=== PATIENT | female | born 2000 | race Caucasian/White ===

== ENCOUNTER 2021-03-17 16:57 | Emergency (ER) | payer OTHER, BC ==
[~2021-03-17] VITALS: Ht 157.5 cm; Wt 102.0 kg
[2021-03-17] MEDS ORDERED: IV NORMAL SALINE 1,000ML 1,000 ML IV ONE (17:15)
[2021-03-17 17:23] VITALS: BP 164/104
[2021-03-17] MEDS ORDERED: CONTRAST GIVEN. MC PRN (17:30)
[2021-03-17] MEDS ORDERED: IOHEXOL 300 MG/ML 75 ML VIAL. IV ONE (17:30)
--- NOTE | 2021-03-17 17:41 | PHYS DOC ---
Past History Past Surgical History: No Surgical History (SHILPA ARMSTRONG DO) General Adult EDM: Chief Complaint: SORE THROAT HPI: HPI: 21-year-old female presents with left tonsil swelling. The patient has been treated with amoxicillin for positive strep test, then had a negative strep test and was treated with penicillin anyway. Both of these were 10-day treatment plans. The pain and soreness in her neck improved but did not ever go away. She had another rapid strep at the doctor's office today and it was negative. They are concerned about peritonsillar abscess so they sent the patient to the emergency room. The patient is not sure if she ever had mononucleosis. She denies fever or chills. (SHILPA ARMSTRONG DO) Review of Systems: Review of Systems: Constitutional: Denies fever or chills Eyes: Denies change in visual acuity HENT: sore throat Respiratory: Denies cough or shortness of breath Cardiovascular: Denies chest pain or edema GI: Denies abdominal pain, nausea, vomiting, bloody stools or diarrhea : Denies dysuria Musculoskeletal: Denies back pain or joint pain Integument: Denies rash Neurologic: Denies headache, focal weakness or sensory changes Endocrine: Denies polyuria or polydipsia Lymphatic: Denies swollen glands Psychiatric: Denies depression or anxiety (SHILPA ARMSTRONG DO) Current Medications: Current Meds: Current Medications Medications (Trade) Dose Ordered Sig/[place] Start Time Stop Time Status Last Admin Dose Admin Info (Do NOT chart on this entry -- for MONITORING) 1 each PRN DAILY PRN 03/17/21 17:30 03/19/21 17:29 Iohexol (Omnipaque 300 Mg/ml) 75 ml 1X ONCE 03/17/21 17:30 03/17/21 17:31 DC Sodium Chloride 1,000 ml @ 1,000 mls/hr 1X ONCE 03/17/21 17:15 03/17/21 18:14 (SHILPA ARMSTRONG DO) Allergies: Allergies: Allergies Coded Allergies Type Severity Reaction Last Updated Verified No Known Drug Allergies 03/17/21 No (SHILPA ARMSTRONG DO) Physical Exam: PE: Constitutional: Well developed, well nourished, morbidly obese, no acute distress, non-toxic appearance. [] HENT: Normocephalic, atraumatic, bilateral external ears normal, oropharynx moist, enlarged swollen left tonsil, nose normal. [] Eyes: PERRLA, EOMI, conjunctiva normal, no discharge. [] Neck: Significantly enlarged left anterior cervical lymph node [] Cardiovascular:Heart rate regular rhythm, no murmur [] Lungs & Thorax: Bilateral breath sounds clear to auscultation [] Abdomen: Bowel sounds normal, soft, no tenderness, no masses, no pulsatile masses. [] Skin: Warm, dry, no erythema, no rash. [] Back: No tenderness, no CVA tenderness. [] Extremities: No tenderness, no cyanosis, no clubbing, ROM intact, no edema. [] Neurologic: Alert and oriented X 3, normal motor function, normal sensory function, no focal deficits noted. [] Psychologic: Affect normal, judgement normal, mood normal. [] (SHILPA ARMSTRONG DO) Current Patient Data: Vital Signs: Vital Signs Date Time Temp Pulse Resp B/P (MAP) Pulse Ox O2 Delivery O2 Flow Rate FiO2 03/17/21 17:23 98.1 128 20 164/104 98 Room Air (SHILPA ARMSTRONG DO) EKG: EKG: [] (SHILPA ARMSTRONG DO) Radiology/Procedures: Radiology/Procedures: [] (SHILPA ARMSTRONG DO) Radiology/Procedures: [address] [id number] IMAGING REPORT Signed PATIENT: YAMEL FAGAN ACCOUNT: [id number] : 2000 LOCATION: ER AGE: 21 SEX: F EXAM STATUS: REG ER ORD. PHYSICIAN: SHILPA ARMSTRONG DO REASON: tonsils swollen, rule out abscess PROCEDURE: CT SOFT TISSUE NECK W/CONTRAST PQRS Compliance Statement: One or more of the following individualized dose reduction techniques were utilized for this examination: 1. Automated exposure control 2. Adjustment of the mA and/or kV according to patient size 3. Use of iterative reconstruction technique CT NECK SOFT TISSUE WITH IV CONTRAST 03/17/2021 5:45 PM Indication: Tonsillar swelling COMPARISON: None available. TECHNIQUE: Multiple axial CT images of the neck were obtained after the intravenous administration nonionic contrast. Coronal and sagittal reformats are provided. FINDINGS: The visualized brain parenchyma appears intact. The skull base is normal. The visualized paranasal sinuses and orbital contents are normal. The sella turcica and cavernous sinus regions appear intact. The mastoid air cells are normal. The fossa of Rosenmuller is normal. There is tonsillar edema, left greater than right with moderate narrowing the oropharyngeal airway. Findings suggest tonsi llitis. No peritonsillar abscess or retropharyngeal abscess. The parotid space contents and apparel cutter space contents appear intact. The parapharyngeal spaces are normal. The submandibular and sublingual space contents appear intact. The epiglottis, aryepiglottic folds, and piriform sinuses are normal. The vallecula appears normal. The larynx and trachea are normal. The thyroid lobes appear intact. The carotid space contents are normal. There is no deep cervical chain adenopathy observed. The jugulodigastric regions appear intact. The perivertebral space contents are normal. The supraclavicular regions appear intact. The visualized mediastinum is normal. The visualized lungs appear intact. The visualized osseous structures are normal. Impression: Tonsillar edema, left greater than right, suggestive of tonsillitis. No drainable fluid collection to suggest abscess. No pathologically enlarged cervical lymph nodes. Electronically signed by: Lindy Singh MD (03/17/2021 6:01 PM) [facility] DICTATED AND SIGNED BY: LINDY SINGH MD DATE: 03/17/211757 CC: SHILPA ARMSTRONG DO; LISA NORRIS PAC ~MTH0 0 [place] [id number] IMAGING REPORT Signed PATIENT: YAMEL FAGAN ACCOUNT: [id number] : 2000 LOCATION: ER AGE: 21 SEX: F EXAM STATUS: REG ER ORD. PHYSICIAN: SHILPA ARMSTRONG DO REASON: tonsils swollen, rule out abscess PROCEDURE: CT SOFT TISSUE NECK W/CONTRAST PQRS Compliance Statement: One or more of the following individualized dose reduction techniques were utilized for this examination: 1. Automated exposure control 2. Adjustment of the mA and/or kV according to patient size 3. Use of iterative reconstruction technique CT NECK SOFT TISSUE WITH IV CONTRAST 03/17/2021 5:45 PM Indication: Tonsillar swelling COMPARISON: None available. TECHNIQUE: Multiple axial CT images of the neck were obtained after the intrav enous administration nonionic contrast. Coronal and sagittal reformats are provided. FINDINGS: The visualized brain parenchyma appears intact. The skull base is normal. The visualized paranasal sinuses and orbital contents are normal. The sella turcica and cavernous sinus regions appear intact. The mastoid air cells are normal. The fossa of Rosenmuller is normal. There is tonsillar edema, left greater than right with moderate narrowing the oropharyngeal airway. Findings suggest tonsillitis. No peritonsillar abscess or retropharyngeal abscess. The parotid space contents and apparel cutter space contents appear intact. The parapharyngeal spaces are normal. The submandibular and sublingual space contents appear intact. The epiglottis, aryepiglottic folds, and piriform sinuses are normal. The vallecula appears normal. The larynx and trachea are normal. The thyroid lobes appear intact. The carotid space contents are normal. There is no deep cervical chain adenopathy observed. The jugulodigastric regions appear intact. The perivertebral space contents are normal. The supraclavicular regions appear intact. The visualized mediastinum is normal. The visualized lungs appear intact. The visualized osseous structures are normal. Impression: Tonsillar edema, left greater than right, suggestive of tonsillitis. No drainable fluid collection to suggest abscess. No pathologically enlarged cervi alayna lymph nodes. Electronically signed by: Lindy Singh MD (03/17/2021 6:01 PM) [facility] DICTATED AND SIGNED BY: LINDY SINGH MD DATE: 03/17/211757 CC: SHILPA ARMSTRONG DO; LISA NORRIS PAC ~MTH0 0 (KEYONNA ECHEVARRIA MD) Heart Score: C/O Chest Pain: N/A Risk Factors: Risk Factors: DM, Current or recent (<one month) smoker, HTN, HLP, family history of CAD, obesity. Risk Scores: Score 0 - 3: 2.5% MACE over next 6 weeks - Discharge Home Score 4 - 6: 20.3% MACE over next 6 weeks - Admit for Clinical Observation Score 7 - 10: 72.7% MACE over next 6 weeks - Early Invasive Strategies (SHILPA ARMSTRONG DO) Course & Med Decision Making: Course & Med Decision Making Pertinent Labs and Imaging studies reviewed. (See chart for details) The patient's labs and CT scan are pending. I am signing the patient out to Dr. Echevarria at 1800. [] (SHILPA ARMSTRONG DO) Course & Med Decision Making Gargle with Listerine 4 x day and as needed. Push fluids. Talke Tylenol and Ibuprofen fever dosages for pain. Benadryl 25 mg liquid 4 x day. Follow up with primary. CT negative for Abscess. Cedar test negaive. Completed Moderna COVID in October x 2. Tx. x 2 for Strept. Amoxicilllin and POCN. . Impression: 1. Viral pharyngitis 1 (KEYONNA ECHEVARRIA MD) Dragon Disclaimer: [place] Disclaimer: This electronic medical record was generated, in whole or in part, using a voice recognition dictation system. (SHILPA ARMSTRONG DO) Departure Departure: Referrals: LISA NORRIS PAC (PCP) SHILPA ARMSTRONG DO Mar 17, 2021 17:40 KEYONNA ECHEVARRIA MD Mar 17, 2021 18:34
[2021-03-17 17:57] LABS: BASO # 0.1 x10^3/uL (0.0-0.2); BASO % 1 % (0-3); EOS # 0.2 x10^3/uL (0.0-0.7); EOS % 1 % (0-3); HEMATOCRIT 41.3 % (36.0-47.0); HEMOGLOBIN 13.8 g/dL (12.0-15.5); LYMPH # 2.4 x10^3/uL (1.0-4.8); LYMPH % 16 % (24-48); MEAN CORPUSCULAR HEMOGLOBIN 30 pg (25-35); MEAN CORPUSCULAR HGB CONC 33 g/dL (31-37); MEAN CORPUSCULAR VOLUME 89 fL (79-100); MONO # 1.2 x10^3/uL (0.0-1.1); MONO % 8 % (0-9); NEUT # 11.2 x10^3uL (1.8-7.7); NEUT % 74 % (31-73); PLATELET COUNT 285 x10^3/uL (140-400); RED BLOOD COUNT 4.62 x10^6/uL (3.50-5.40); RED CELL DISTRIBUTION WIDTH 13.1 % (11.5-14.5); WHITE BLOOD COUNT 15.2 x10^3/uL (4.0-11.0)
--- NOTE | 2021-03-17 18:04 | RAD ---
PQRS Compliance Statement: One or more of the following individualized dose reduction techniques were utilized for this examinat ion: 1. Automated exposure control 2. Adjustment of the mA and/or kV according to patient size 3. Use of iterative reconstruction technique CT NECK SOFT TISSUE WITH IV CONTRAST 03/17/2021 5:45 PM Indication: Tonsillar swelling COMPARISON: None available. TECHNIQUE: Multiple axial CT images of the neck were obtained after the intravenous administration no nionic contrast. Coronal and sagittal reformats are provided. FINDINGS: The visualized brain parenchyma appears intact. The skull base is normal. The visualized paranasal si nuses and orbital contents are normal. The sella turcica and cavernous sinus regions appear intact. T he mastoid air cells are normal. The fossa of Rosenmuller is normal. There is tonsillar edema, left greater than right with moderate n arrowing the oropharyngeal airway. Findings suggest tonsillitis. No peritonsillar abscess or retropha ryngeal abscess. The parotid space contents and hoop expander space contents appear intact. The paraphar yngeal spaces are normal. The submandibular and sublingual space contents appear intact. The epiglottis, aryepiglottic folds, and piriform sinuses are normal. The vallecula appears normal. The larynx and trachea are normal. The thyroid lobes appear intact. The carotid space contents are normal. There is no deep cervical chain adenopathy observed. The jugul odigastric regions appear intact. The perivertebral space contents are normal. The supraclavicular regions appear intact. The visualiz ed mediastinum is normal. The visualized lungs appear intact. The visualized osseous structures are n ormal. Impression: Tonsillar edema, left greater than right, suggestive of tonsillitis. No drainable fluid collection to suggest abscess. No pathologically enlarged cervical lymph nodes. Electronically signed by: Yamileth Marshall MD (03/17/2021 6:01 PM) [facility]
[2021-03-17 18:05] LABS: CALCIUM 9.5 mg/dL (8.5-10.1); CREATININE 0.8 mg/dL (0.6-1.0); GFR 88.9; POTASSIUM 3.9 mmol/L (3.5-5.1)
[2021-03-17 18:11] LABS: MONONUCLEOSIS PATIENT NEGATIVE (NEGATIVE)
[2021-03-17 18:13] LABS: ALBUMIN 4.4 g/dL (3.4-5.0); ALBUMIN/GLOBULIN RATIO 1.3 (1.0-1.7); TOTAL BILIRUBIN 0.7 mg/dL (0.2-1.0); TOTAL PROTEIN 7.7 g/dL (6.4-8.2)
[2021-03-17 22:05] LABS: % ATYL 2 % (0-0); % BANDS 4 % (0-9); % LYMPHS 19 % (24-48); % MONOS 2 % (0-10); % SEGS 73 % (35-66)
[2021-03-17 22:06] LABS: PLT ESTIMATE ADEQUATE (ADEQUATE)
== END 2021-03-17 19:47 | disposition home or self-care (01) ==
LOC: ER 16:57
DX: J02.8 Acute pharyngitis due to other specified organisms (principal)
CPT/HCPCS: 36415; 70491; 80053; 85007; 85025; 86308; 96360; 99285; J7030; Q9967